=== PATIENT | female | born 1965 | race Asian ===

== ENCOUNTER 2022-05-19 07:29 | Day surgery (SDC) | payer OTHER ==
[~2022-05-19] VITALS: Ht 152.4 cm; Wt 47.6 kg
[2022-05-19] MEDS ORDERED: MIDAZOLAM 5 MG/5 ML VIAL ONE (08:35)
[2022-05-19] MEDS ORDERED: diphenhydrAMINE 50 MG/ML VIAL ONE (08:35)
[2022-05-19] MEDS ORDERED: fentaNYL citrate 0.05 MG/ML VIAL ONE (08:35)
[2022-05-19] MEDS ORDERED: LIDOCAINE 2% 100 MG/5 ML UJET TP ONE (08:36)
[2022-05-19] MEDS ORDERED: fentaNYL citrate 0.05 MG/ML VIAL IVP ONE (16:10)
[2022-05-19] MEDS ORDERED: MIDAZOLAM 2 MG/2 ML VIAL IVP ONE (16:10)
== END 2022-05-19 10:50 | disposition home or self-care (01) ==
LOC: MOR 07:29 → MMU 07:34 → MOR 10:50
PROVIDERS: ATTEND Internal Medicine Gastroenterology
DX: Z12.11 Encounter for screening for malignant neoplasm of colon (principal); M19.90 Unspecified osteoarthritis, unspecified site; Z96.649 Presence of unspecified artificial hip joint; Z79.899 Other long term (current) drug therapy
CPT/HCPCS: 45378; J2250; J3010; J7030; J1200

== ENCOUNTER 2023-07-13 05:52 | Day surgery (SDC) | payer OTHER ==
[~2023-07-13] VITALS: Ht 152.4 cm; Wt 49.9 kg
[2023-07-13] MEDS ORDERED: fentaNYL citrate 0.05 MG/ML VIAL ONE (07:49)
[2023-07-13] MEDS ORDERED: diphenhydrAMINE 50 MG/ML VIAL ONE (07:49)
[2023-07-13] MEDS ORDERED: MIDAZOLAM 5 MG/5 ML VIAL ONE (07:49)
[2023-07-13] MEDS ORDERED: LIDOCAINE 2% 100 MG/5 ML UJET TP ONE (07:50)
[2023-07-13] MEDS ORDERED: MIDAZOLAM 2 MG/2 ML VIAL IVP ONE (09:55)
[2023-07-13] MEDS ORDERED: fentaNYL citrate 0.05 MG/ML VIAL IVP ONE (09:55)
== END 2023-07-13 09:20 | disposition home or self-care (01) ==
LOC: MOR 05:52 → MMU 06:45 → MOR 09:20
PROVIDERS: ATTEND Internal Medicine Gastroenterology
DX: Z09 Encounter for follow-up examination after completed treatment for conditions other than malignant neoplasm (principal); D12.4 Benign neoplasm of descending colon; M06.9 Rheumatoid arthritis, unspecified; Z96.642 Presence of left artificial hip joint
CPT/HCPCS: 45381; 45385; 88305; J2250; J3010; J1200

== ENCOUNTER 2024-02-29 06:34 | Day surgery (SDC) | payer OTHER ==
[~2024-02-29] VITALS: Ht 152.4 cm; Wt 49.9 kg
[2024-02-29] MEDS ORDERED: fentaNYL citrate 0.05 MG/ML VIAL ONE (07:58)
[2024-02-29] MEDS ORDERED: LIDOCAINE 2% 100 MG/5 ML UJET TP ONE (07:58)
[2024-02-29] MEDS ORDERED: SIMETHICONE 40 MG/0.6 ML ONE (07:59)
[2024-02-29] MEDS: fentaNYL citrate 0.05 MG/ML VIAL IVP ONE (08:23)
[2024-02-29] MEDS: LIDOCAINE 2% 100 MG/5 ML UJET TP ONE (08:37)
== END 2024-02-29 09:40 | disposition home or self-care (01) ==
LOC: MMU 06:34 → MDS 06:34
PROVIDERS: ATTEND Internal Medicine Gastroenterology
DX: Z09 Encounter for follow-up examination after completed treatment for conditions other than malignant neoplasm (principal); Z86.010 Personal history of colon polyps; M19.90 Unspecified osteoarthritis, unspecified site; Z79.899 Other long term (current) drug therapy; Z98.890 Other specified postprocedural states
CPT/HCPCS: 45378; J3010